=== PATIENT | male | born 1970 | race Caucasian/White ===

== ENCOUNTER 2018-08-15 19:59 | Inpatient (IN) | payer MEDICAID ==
[~2018-08-15] VITALS: Ht 185.4 cm; Wt 96.2 kg
[2018-08-15 23:48] LABS: BASOPHILS % (AUTO) 0.6 % (0.0-2.0); EOSINOPHILS % (AUTO) 1.8 % (1.0-6.0); HEMATOCRIT 42.9 % (41-53); HEMOGLOBIN 14.8 g/dL (13.5-17.5); LYMPHOCYTES % (AUTO) 43.8 % (22.0-44.0); MEAN CORPUSCULAR HEMOGLOBIN 33.3 pg (26.0-34.0); MEAN CORPUSCULAR HGB CONC 34.6 G/dL (31.0-37.0); MEAN CORPUSCULAR VOLUME 96 fL (80-100); MONOCYTES # (AUTO) 0.4 K/uL (0.1-1.0); NEUTROPHILS # (AUTO) 2.1 K/uL (1.8-7.7); NEUTROPHILS % (AUTO) 44.8 % (40.0-70.0); PLATELET COUNT (AUTO) 224 K/uL (150-450); RED BLOOD CELL COUNT(AUTO) 4.45 MIL/uL (4.50-5.90); RED CELL DISTRIBUTION WIDTH 13.7 % (11.5-14.5)
[2018-08-15 23:53] LABS: ANION GAP 8 mmol/L (8-16); CALCIUM, TOTAL 9.2 mg/dL (8.8-10.5); CARBON DIOXIDE 28 mmol/L (22-29); CHLORIDE 107 mmol/L (98-107); CREATININE 0.94 mg/dL (0.60-1.30); GLOMERULAR FILTR. RATE CALC > 60 mL/min (>60); GLUCOSE,RANDOM 95 mg/dL (70-110); POTASSIUM 3.1 mmol/L (3.5-5.1); SODIUM SERUM 143 mmol/L (136-145); UREA NITROGEN, BLOOD 21 mg/dL (7-18)
[2018-08-15 23:59] LABS: ALANINE AMINOTRANSFERASE 22 U/L (12-78); ALBUMIN 3.5 g/dL (3.4-5.0); ALKALINE PHOSPHATASE 73 U/L (46-116); ASPARTATE AMINOTRANSFERASE 22 U/L (15-37); BILIRUBIN,TOTAL 0.5 mg/dL (0.1-1.0); TOTAL PROTEIN, SERUM 6.8 g/dL (6.4-8.2)
[2018-08-16] MEDS ORDERED: POTASSIUM CHLORIDE 20 MEQ ER TABLET PO ONE (01:30)
[2018-08-16] MEDS ORDERED: LORazepam 2 MG TABLET PO ONE (01:45)
[2018-08-16] MEDS ORDERED: HALOPERIDOL 5 MG TABLET PO ONE (01:45)
[2018-08-16] MEDS ORDERED: HALOPERIDOL 5 MG TABLET PO PRN (02:00)
[2018-08-16 08:48] VITALS: BP 116/63
[2018-08-16] MEDS ORDERED: IBUPROFEN 600 MG TABLET PO PRN (10:30)
[2018-08-16] MEDS ORDERED: BENZOCAINE/MENTHOL LOZENGE MM PRN (10:30)
[2018-08-16] MEDS ORDERED: ALBUTEROL SULFATE HFA 90 MCG/PUFF 8 GM INHALER IH PRN (10:30)
[2018-08-16] MEDS ORDERED: MAGNESIUM HYDROXIDE SUSPENSION 30 ML UDCUP PO PRN (10:30)
[2018-08-16] MEDS ORDERED: CloNIDine HCL 0.1 MG TABLET PO PRN (10:30)
[2018-08-16] MEDS ORDERED: MAG HYDROX/AL HYDROX/SIMETH ES 30 ML SUSPENSION UDCUP PO PRN (10:30)
[2018-08-16] MEDS ORDERED: PETROLATUM,WHITE 71 GM JELLY TP PRN (10:30)
[2018-08-16] MEDS ORDERED: ACETAMINOPHEN 325 MG TABLET PO PRN (10:30)
[2018-08-16] MEDS ORDERED: LOPERAMIDE HCL 2 MG CAPSULE PO PRN (10:30)
[2018-08-16] MEDS ORDERED: BACITRACIN 28.4 GM OINTMENT TP PRN (10:30)
[2018-08-16] MEDS ORDERED: ONDANSETRON HCL 4 MG TABLET PO PRN (10:30)
[2018-08-16] MEDS: LORazepam 2 MG TABLET PO PRN (12:35)
[2018-08-17] MEDS: ZOLPIDEM TARTRATE 10 MG TABLET PO PRN (00:53)
[2018-08-17] MEDS: LORazepam 2 MG TABLET PO PRN ×3 (00:53→18:00)
[2018-08-17 00:58] VITALS: BP 135/98
[2018-08-17] MEDS: OMEPRAZOLE 20 MG CAPSULE PO SCH (08:31)
[2018-08-17] MEDS: DOCUSATE SODIUM 100 MG CAPSULE PO SCH (08:31)
[2018-08-17] MEDS: QUEtiapine FUMARATE 100 MG TABLET PO SCH (08:32)
[2018-08-17 08:39] VITALS: BP 123/69
[2018-08-17 16:00] VITALS: BP 120/72
[2018-08-17] MEDS: TraZODone HCL 50 MG TABLET PO SCH (20:31)
[2018-08-17] MEDS: QUEtiapine FUMARATE 200 MG TABLET PO SCH (20:31)
[2018-08-18 01:34] VITALS: BP 116/70
[2018-08-18] MEDS: OMEPRAZOLE 20 MG CAPSULE PO SCH (08:40)
[2018-08-18] MEDS: DOCUSATE SODIUM 100 MG CAPSULE PO SCH (08:40)
[2018-08-18] MEDS: QUEtiapine FUMARATE 100 MG TABLET PO SCH (08:40)
[2018-08-18] MEDS ORDERED: POTASSIUM CHLORIDE 20 MEQ ER TABLET PO ONE (11:45)
[2018-08-18 13:00] VITALS: BP 130/78
[2018-08-18 16:07] VITALS: BP 126/72
[2018-08-18] MEDS: LORazepam 2 MG TABLET PO PRN (16:21)
[2018-08-18] MEDS: TraZODone HCL 50 MG TABLET PO SCH (20:13)
[2018-08-18] MEDS: QUEtiapine FUMARATE 200 MG TABLET PO SCH (20:14)
[2018-08-19 00:53] VITALS: BP 124/69
[2018-08-19] MEDS: DOCUSATE SODIUM 100 MG CAPSULE PO SCH (08:15)
[2018-08-19] MEDS: QUEtiapine FUMARATE 100 MG TABLET PO SCH (08:15)
[2018-08-19] MEDS: OMEPRAZOLE 20 MG CAPSULE PO SCH (08:15)
[2018-08-19 08:17] VITALS: BP 122/78
[2018-08-19 08:45] LABS: ANION GAP 4 mmol/L (8-16); CALCIUM, TOTAL 9.2 mg/dL (8.8-10.5); CARBON DIOXIDE 30 mmol/L (22-29); CHLORIDE 105 mmol/L (98-107); CHOL/HDL RATIO 4.7 (4.2-7.3); CHOLESTEROL 174 mg/dL (131-200); CREATININE 0.88 mg/dL (0.60-1.30); GLOMERULAR FILTR. RATE CALC > 60 mL/min (>60); GLUCOSE,RANDOM 94 mg/dL (70-110); HDL CHOLESTEROL 37 mg/dL (40-60); LDL CHOL (CALC.) 113 mg/dL (0-130); POTASSIUM 4.1 mmol/L (3.5-5.1); SODIUM SERUM 139 mmol/L (136-145); TRIGLYCERIDES 118 mg/dL (15-150); UREA NITROGEN, BLOOD 18 mg/dL (7-18)
[2018-08-19] MEDS: LORazepam 2 MG TABLET PO PRN ×2 (13:02→20:33)
[2018-08-19 16:28] VITALS: BP 123/76
[2018-08-19] MEDS: ZOLPIDEM TARTRATE 10 MG TABLET PO PRN (20:33)
[2018-08-19] MEDS: QUEtiapine FUMARATE 200 MG TABLET PO SCH (20:34)
[2018-08-19] MEDS: TraZODone HCL 50 MG TABLET PO SCH (20:34)
[2018-08-20 02:53] VITALS: BP 119/74
[2018-08-20] MEDS: LORazepam 2 MG TABLET PO PRN ×3 (08:18→16:53)
[2018-08-20] MEDS: QUEtiapine FUMARATE 100 MG TABLET PO SCH (08:18)
[2018-08-20] MEDS: DOCUSATE SODIUM 100 MG CAPSULE PO SCH (08:18)
[2018-08-20] MEDS: OMEPRAZOLE 20 MG CAPSULE PO SCH (08:18)
[2018-08-20 08:21] VITALS: BP 126/76
[2018-08-20 16:00] VITALS: BP 115/65
[2018-08-20] MEDS: TraZODone HCL 50 MG TABLET PO SCH (21:04)
[2018-08-20] MEDS: ZOLPIDEM TARTRATE 10 MG TABLET PO PRN (21:04)
[2018-08-20] MEDS: QUEtiapine FUMARATE 200 MG TABLET PO SCH (21:04)
[2018-08-21 06:34] VITALS: BP 110/62
[2018-08-21] MEDS: QUEtiapine FUMARATE 100 MG TABLET PO SCH (08:04)
[2018-08-21] MEDS: OMEPRAZOLE 20 MG CAPSULE PO SCH (08:04)
[2018-08-21] MEDS: DOCUSATE SODIUM 100 MG CAPSULE PO SCH (08:04)
[2018-08-21 08:09] VITALS: BP 122/70
[2018-08-21 16:09] VITALS: BP 118/83
[2018-08-21] MEDS: QUEtiapine FUMARATE 200 MG TABLET PO SCH (20:19)
[2018-08-21] MEDS: TraZODone HCL 50 MG TABLET PO SCH (20:19)
[2018-08-21] MEDS: LORazepam 2 MG TABLET PO PRN (21:31)
[2018-08-22 04:10] VITALS: BP 121/68
[2018-08-22] MEDS: QUEtiapine FUMARATE 100 MG TABLET PO SCH (08:16)
[2018-08-22] MEDS: DOCUSATE SODIUM 100 MG CAPSULE PO SCH (08:16)
[2018-08-22] MEDS: OMEPRAZOLE 20 MG CAPSULE PO SCH (08:16)
[2018-08-22 09:47] VITALS: BP 145/90
[2018-08-22] MEDS: LORazepam 2 MG TABLET PO PRN (11:15)
[2018-08-22] MEDS ORDERED: TRAZ-219 PO (13:11)
[2018-08-22] MEDS ORDERED: QUET200T PO (13:11)
[2018-08-22] MEDS ORDERED: QUET100T PO (13:11)
[2018-08-22 13:23] VITALS: BP 125/84
== END 2018-08-22 14:10 | disposition home or self-care (01) | DRG 750 ==
LOC: EMS 20:00 → B3A 08-16 02:00 → B2S 08-21 14:30
PROVIDERS: ADMIT Psychiatry & Neurology Psychiatry; ATTEND Psychiatry & Neurology Psychiatry
DX: F25.9 Schizoaffective disorder, unspecified (principal); R45.851 Suicidal ideations; E87.6 Hypokalemia; F32.9 Major depressive disorder, single episode, unspecified; F41.9 Anxiety disorder, unspecified; G47.00 Insomnia, unspecified; K59.00 Constipation, unspecified; Z28.21 Immunization not carried out because of patient refusal; Z88.8 Allergy status to other drugs, medicaments and biological substances
CPT/HCPCS: G0480; Q0162

== ENCOUNTER 2019-03-07 11:17 | Inpatient (IN) | payer MEDICAID ==
[~2019-03-07] VITALS: Ht 185.4 cm; Wt 99.3 kg
[~2019-03-07 11:17] MED LIST: QUET100T PO; QUET200T PO; TRAZ-252 PO
[2019-03-07] MEDS ORDERED: ZOLPIDEM TARTRATE 10 MG TABLET PO PRN (12:15)
[2019-03-07 13:25] VITALS: BP 129/81
[2019-03-07] MEDS: HALOPERIDOL 5 MG TABLET PO PRN (15:48)
[2019-03-07] MEDS ORDERED: ONDANSETRON HCL 4 MG TABLET PO PRN (16:15)
[2019-03-07] MEDS ORDERED: NICOTINE 14 MG/24 HOUR PATCH TD PRN (16:15)
[2019-03-07] MEDS ORDERED: ACETAMINOPHEN 325 MG TABLET PO PRN (16:15)
[2019-03-07] MEDS ORDERED: PETROLATUM,WHITE 28 GM JELLY TP PRN (16:15)
[2019-03-07] MEDS ORDERED: MAGNESIUM HYDROXIDE SUSPENSION 30 ML UDCUP PO PRN (16:15)
[2019-03-07] MEDS ORDERED: MAG HYDROX/AL HYDROX/SIMETH ES 30 ML SUSPENSION UDCUP PO PRN (16:15)
[2019-03-07] MEDS ORDERED: GuaiFENesin/D-METHORPHAN [SUGAR-FREE] 200-20MG/10 ML SYRUP UDCUP PO PRN (16:15)
[2019-03-07] MEDS ORDERED: IBUPROFEN 400 MG TABLET PO PRN (16:15)
[2019-03-07] MEDS ORDERED: DOCUSATE SODIUM 100 MG CAPSULE PO PRN (16:15)
[2019-03-07] MEDS ORDERED: ALBUTEROL SULFATE HFA 90 MCG/PUFF 8 GM INHALER IH PRN (16:15)
[2019-03-07] MEDS ORDERED: LOPERAMIDE HCL 2 MG CAPSULE PO PRN (16:15)
[2019-03-07] MEDS ORDERED: CloNIDine HCL 0.1 MG TABLET PO PRN (16:15)
[2019-03-07 16:26] VITALS: BP 128/70
[2019-03-08 00:42] VITALS: BP 110/70
[2019-03-08 08:48] VITALS: BP 113/75
[2019-03-08 18:17] VITALS: BP 120/72
[2019-03-08] MEDS ORDERED: SERTRALINE HCL 50 MG TABLET PO SCH (21:00)
[2019-03-09 04:21] VITALS: BP 101/64
[2019-03-09] MEDS ORDERED: ARIPiprazole 5 MG TABLET PO SCH (09:00)
[2019-03-09 09:45] VITALS: BP 108/63
[2019-03-09 16:18] VITALS: BP 122/62
[2019-03-09] MEDS: LORazepam 2 MG TABLET PO PRN (16:51)
[2019-03-09] MEDS ORDERED: SERTRALINE HCL 100 MG TABLET PO SCH (21:00)
[2019-03-10 05:05] VITALS: BP 119/68
[2019-03-10 08:23] VITALS: BP 114/60
[2019-03-10] MEDS: LORazepam 2 MG TABLET PO PRN ×2 (08:46→15:57)
[2019-03-10] MEDS ORDERED: ARIPiprazole 10 MG TABLET PO SCH (09:00)
[2019-03-10 16:10] VITALS: BP 109/77
[2019-03-10] MEDS: SERTRALINE HCL 100 MG TABLET PO SCH (20:17)
[2019-03-11 06:43] VITALS: BP 120/62
[2019-03-11] MEDS: ARIPiprazole 15 MG TABLET PO SCH (08:09)
[2019-03-11 08:10] VITALS: BP 102/63
[2019-03-11] MEDS: LORazepam 2 MG TABLET PO PRN ×2 (09:03→16:31)
[2019-03-11 16:05] VITALS: BP 110/70
[2019-03-11] MEDS: HALOPERIDOL 5 MG TABLET PO PRN (16:31)
[2019-03-11] MEDS: SERTRALINE HCL 100 MG TABLET PO SCH (20:16)
[2019-03-12 06:15] VITALS: BP 104/60
[2019-03-12 08:15] VITALS: BP 122/69
[2019-03-12 08:15] LABS: BASOPHILS % (AUTO) 0.5 % (0.0-2.0); EOSINOPHILS % (AUTO) 0.9 % (1.0-6.0); HEMATOCRIT 44.9 % (41-53); HEMOGLOBIN 15.1 g/dL (13.5-17.5); LYMPHOCYTES # (AUTO) 1.4 K/uL (1.0-4.8); LYMPHOCYTES % (AUTO) 33.2 % (22.0-44.0); MEAN CORPUSCULAR HEMOGLOBIN 33.6 pg (26.0-34.0); MEAN CORPUSCULAR HGB CONC 33.7 G/dL (31.0-37.0); MEAN CORPUSCULAR VOLUME 100 fL (80-100); MONOCYTES # (AUTO) 0.3 K/uL (0.1-1.0); MONOCYTES % (AUTO) 6.6 % (2.0-9.0); NEUTROPHILS # (AUTO) 2.5 K/uL (1.8-7.7); NEUTROPHILS % (AUTO) 58.8 % (40.0-70.0); PLATELET COUNT (AUTO) 217 K/uL (150-450); RED CELL DISTRIBUTION WIDTH 12.6 % (11.5-14.5)
[2019-03-12 08:24] LABS: HEMOGLOBIN A1C 5.3 % (4.5-6.2)
[2019-03-12] MEDS: ARIPiprazole 15 MG TABLET PO SCH (08:24)
[2019-03-12] MEDS ORDERED: ARIP15TA2 PO (08:31)
[2019-03-12] MEDS ORDERED: SERT100T12 PO (08:31)
[2019-03-12 08:47] LABS: ALANINE AMINOTRANSFERASE 26 U/L (12-78); ALBUMIN 3.6 g/dL (3.4-5.0); ALKALINE PHOSPHATASE 75 U/L (46-116); ANION GAP 8 mmol/L (8-16); ASPARTATE AMINOTRANSFERASE 18 U/L (15-37); BILIRUBIN,TOTAL 0.3 mg/dL (0.1-1.0); CARBON DIOXIDE 25 mmol/L (22-29); CHLORIDE 107 mmol/L (98-107); CHOL/HDL RATIO 5.3 (4.2-7.3); CHOLESTEROL 171 mg/dL (131-200); CREATININE 0.85 mg/dL (0.60-1.30); FREE T4 (FREE THYROXINE) 0.96 ng/dL (0.76-1.46); GLOMERULAR FILTR. RATE CALC > 60 mL/min (>60); GLUCOSE,RANDOM 100 mg/dL (70-110); HDL CHOLESTEROL 32 mg/dL (40-60); LDL CHOL (CALC.) 121 mg/dL (0-130); POTASSIUM 3.7 mmol/L (3.5-5.1); SODIUM SERUM 140 mmol/L (136-145); THYROID STIMULATING HORMONE 0.72 uIU/mL (0.36-3.74); TOTAL PROTEIN, SERUM 6.8 g/dL (6.4-8.2); TRIGLYCERIDES 91 mg/dL (15-150); UREA NITROGEN, BLOOD 17 mg/dL (7-18)
== END 2019-03-12 13:25 | disposition home or self-care (01) | DRG 750 ==
LOC: B2S 13:14
PROVIDERS: ADMIT Psychiatry & Neurology Psychiatry; ATTEND Psychiatry & Neurology Psychiatry
DX: F25.1 Schizoaffective disorder, depressive type (principal); R45.851 Suicidal ideations; Z59.0 Homelessness; F17.200 Nicotine dependence, unspecified, uncomplicated; F41.9 Anxiety disorder, unspecified; K59.00 Constipation, unspecified; Z91.5 Personal history of self-harm; G47.00 Insomnia, unspecified; R00.0 Tachycardia, unspecified
CPT/HCPCS: 83036; 84439; 84443